=== PATIENT | female | born 1995 | race Caucasian/White ===

== ENCOUNTER 2020-07-23 10:58 | Emergency (ER) | payer OTHER ==
[~2020-07-23] VITALS: Ht 162.6 cm; Wt 52.1 kg
[2020-07-23] MEDS ORDERED: PREN1CHW PO (11:04)
[2020-07-23] MEDS ORDERED: ACETAMINOPHEN 325 MG TAB PO ONE (11:30)
[2020-07-23 12:01] LABS: BASO % 0.2 % (0.0-1.0); EOS % 0.3 % (0.0-3.0); HEMOGLOBIN 12.3 g/dl (12.0-15.5); LYMPH # 2.2 10^3/uL (1.5-5.0); LYMPH % 18.4 % (24.0-44.0); MEAN CORPUSCULAR HEMOGLOBIN 30.6 pg (27.0-33.0); MEAN CORPUSCULAR HGB CONC 33.2 g/dl (32.0-36.5); MONO # 0.9 10^3/uL (0.0-0.8); MONO % 7.9 % (2.0-8.0); NEUTROPHILS # 8.5 10^3/uL (1.5-8.5); NEUTROPHILS % 72.8 % (36.0-66.0); PLATELET COUNT, AUTOMATED 258 10^3/uL (150-450); RED BLOOD COUNT 4.02 10^6/uL (4.00-5.40); WHITE BLOOD COUNT 11.7 10^3/uL (4.0-10.0)
[2020-07-23 12:05] LABS: APPEARANCE, URINE CLEAR (CLEAR); BACTERIA, URINE AUTO 1+ (NEGATIVE); BILIRUBIN, URINE AUTO NEGATIVE (NEGATIVE); BLOOD, URINE BLOOD 1+ (NEGATIVE); COLOR, URINE STRAW (YELLOW); GLUCOSE, URINE (UA) AUTO NEGATIVE (NEGATIVE); KETONE, URINE AUTO NEGATIVE (NEGATIVE); LEUKOCYTE ESTERASE, URINE AUTO NEGATIVE (NEGATIVE); MUCUS, URINE SMALL (NEGATIVE); NITRITE, URINE AUTO NEGATIVE (NEGATIVE); PROTEIN, URINE AUTO NEGATIVE (NEGATIVE); RBC, URINE AUTO 1 /HPF (0-3); SPECIFIC GRAVITY URINE AUTO 1.006 (1.002-1.035); SQUAMOUS EPITHELIAL CELL UR AU 1 /HPF (0-6); UROBILINOGEN, URINE AUTO 0.2 mg/dL (0.0-2.0); WBC, URINE AUTO 1 /HPF (0-3)
--- NOTE | 2020-07-23 12:23 | REP ---
INDICATION: VAGINAL BLEEDING. COMPARISON: None. TECHNIQUE: Real-time sonographic evaluation of gravid uterus performed. FINDINGS: There is a single living intrauterine gestation with an estimated gestational age of 8 weeks 5 days based on a crown-rump length of 21 mm. EDC 02/27/2021. heart rate 161 beats per minute. There is a subchorionic hemorrhage which measures approximately 2.3 x 0.6 x 2.3 cm. IMPRESSION: Viable intrauterine gestation 8 weeks 5 days gestational age, heart rate 161 beats per minute. Subchorionic hemorrhage measuring 2.3 x 0.6 x 2.3 cm. <Electronically signed by Praful Sky > 07/23/20 [id number]
[2020-07-23 13:42] LABS: HCG, SERUM QUANTITATIVE 274168 MIU/ML
[2020-07-23 13:44] LABS: BLOOD UREA NITROGEN 5 MG/DL (7-18); CALCIUM LEVEL 8.4 MG/DL (8.5-10.1); CARBON DIOXIDE LEVEL 29 MEQ/L (21-32); CHLORIDE LEVEL 106 MEQ/L (98-107); GLOMERULAR FILTRATION RATE > 60.0 (>60); GLUCOSE, FASTING 82 MG/DL (70-100); POTASSIUM SERUM 3.6 MEQ/L (3.5-5.1); SODIUM LEVEL 138 MEQ/L (136-145)
[2020-07-23 14:10] LABS: CHLAMYDIA DNA AMPLIFICATION NEGATIVE (NEGATIVE); GC DNA AMPLIFICATION NEGATIVE (NEGATIVE)
[2020-07-23] MEDS ORDERED: CEPH500C PO (14:43)
[2020-07-23 14:45] VITALS: BP 126/59
== END 2020-07-23 14:55 | disposition home or self-care (01) ==
LOC: M ED 10:58
DX: O20.9 Hemorrhage in early pregnancy, unspecified (principal); O36.8910 Maternal care for other specified fetal problems, first trimester, not applicable or unspecified; O23.41 Unspecified infection of urinary tract in pregnancy, first trimester; R87.619 Unspecified abnormal cytological findings in specimens from cervix uteri; Z3A.08 8 weeks gestation of pregnancy

== ENCOUNTER 2021-02-11 21:43 | Inpatient (IN) | payer OTHER ==
[~2021-02-11] VITALS: Ht 156.2 cm; Wt 61.9 kg
[~2021-02-11 21:43] MED LIST: CEPH500C PO; PREN1CHW PO
[2021-02-11 22:01] VITALS: BP 113/63
--- OUTSIDE RECORDS SUMMARY | 2021-02-11 22:30 | CCD ---
Author Author [facility] Organization [facility] Address Unknown Phone Unavailable Support Name Relationship Address Phone SQUARED AWAY Next Of Kin [address] [place] [address] Unavailable ROSENDO BARRIGA Next Of Kin [address] [place] [address] Re-disclosure Warning The records that you are about to access may contain information from federally-assisted alcohol or drug abuse programs. If such information is present, then the following federally mandated warning applies: This information has been disclosed to you from records protected by federal confidentiality rules (42 CFR part 2). The federal rules prohibit you from making any further disclosure of this information unless further disclosure is expressly permitted by the written consent of the person to whom it pertains or as otherwise permitted by 42 CFR part 2. A general authorization for the release of medical or other information is NOT sufficient for this purpose. The Federal rules restrict any use of the information to criminally investigate or prosecute any alcohol or drug abuse patient.The records that you are about to access may contain highly sensitive health information, the redisclosure of which is protected by Article 27-F of the [facility] Public Health law. If you continue you may have access to information: Regarding HIV / AIDS; Provided by facilities licensed or operated by the [facility] Office of Mental Health; or Provided by the [facility] Office for People With Developmental Disabilities. If such information is present, then the following [facility] mandated warning applies: This information has been disclosed to you from confidential records which are protected by state law. State law prohibits you from making any further disclosure of this information without the specific written consent of the person to whom it pertains, or as otherwise permitted by law. Any unauthorized further disclosure in violation of state law may result in a fine or fpc sentence or both. A general authorization for the release of medical or other information is NOT sufficient authorization for further disc losure. Medications No Information Insurance Providers Payer name Policy type / Coverage type Policy ID Covered alliance party ID Covered alliance party's relationship to shelby Policy [place] Plan Information [facility] [id number] [facility] [id number] Problems, Conditions, and Diagnoses No Information Surgeries/Procedures No Information Results No Information Social History No Information
[2021-02-11] MEDS ORDERED: AZITHROMYCIN INJ 500 MG, VIAL MATE ADAPTER 1 EACH in NS 250 ML IV ONE (22:40)
[2021-02-11] MEDS ORDERED: METHYLERGONOVINE MALEATE 0.2 MG/ML VIAL (J2210) IM PRN (22:40)
[2021-02-11] MEDS ORDERED: CARBOPROST TROMETHAMINE 250 MCG/ML AMP IM PRN (22:40)
[2021-02-11] MEDS ORDERED: OXYTOCIN DRIP 30 UNITS in IV 1 EA IV PRN ×4 (22:40)
[2021-02-11] MEDS ORDERED: TRANEXAMIC ACID INJection 1,000 MG in NS 100 ML IV PRN (22:40)
[2021-02-11] MEDS ORDERED: LR 1,000 ML IV ONE (23:05)
[2021-02-11 23:14] VITALS: BP 113/76
[2021-02-11 23:21] LABS: HEMATOCRIT 31.5 % (36.0-47.0); HEMOGLOBIN 9.7 g/dl (12.0-15.5); MEAN CORPUSCULAR HEMOGLOBIN 24.1 pg (27.0-33.0); MEAN CORPUSCULAR HGB CONC 30.8 g/dl (32.0-36.5); MEAN CORPUSCULAR VOLUME 78.4 fl (80.0-96.0); PLATELET COUNT, AUTOMATED 332 10^3/uL (150-450); RED BLOOD COUNT 4.02 10^6/uL (4.00-5.40); WHITE BLOOD COUNT 14.7 10^3/uL (4.0-10.0)
[2021-02-11] MEDS ORDERED: ceFAZolin SOD 2 GM in IV 1 EA IV ONE (23:30)
[2021-02-11] MEDS ORDERED: ceFAZolin 2 GM/D5W 50 ML IV BAG (J0690 PER 500MG) As Ordered ONE (23:34)
[2021-02-11 23:46] VITALS: BP 116/69
[2021-02-12] VITALS (9 sets, daily range): BP systolic 97–128; BP diastolic 54–74
[2021-02-12] MEDS: BICITRA 30ML SOLN UDC PO SCH ×2 (00:14→20:19)
[2021-02-12] MEDS: LR 1,000 ML IV SCH ×2 (00:15→04:06)
--- NOTE | 2021-02-12 00:22 | HPEPDOC ---
Obstetrical History & Physical General Date of Admission Feb 11, 2021 at 22:19 History of Present Illness 25 yo at 38+5 weeks gestation by LMP of 17May2020 c/w 21+1 weeks US presented to L&D with regular, painful contractions. She denies vaginal bleeding or leakage of fluid. She endorses regular movement. She is scheduled for PLTCS with BTL on 20Feb2021 for breech presentation. 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 Past Medical History Medical History Anemia Surgical History: Denies/None Family History Significant Family History: No pertinent family hx Social History Marital Status: Family situation: Spouse/partner home Psychosocial History: No pertinent psych hx * Smoker: non-smoker Alcohol: Denies Drugs: denies Imunizations Tdap status: current Influenza Status: declined Allergies Coded Allergies: No Known Allergies (Unverified , 07/23/20) Medications Scheduled Cephalexin (Cephalexin) 500 Mg Capsule, 500 MG PO QID Comb No.42/Folic Acid (Prena1 Chew Tablet) 1.4 Mg Tab.ch.bph, 1 TAB PO DAILY Physical Examination Physical Examination GENERAL: Alert and oriented times three. ABDOMEN: Gravid and non-tender to touch. FETUS: Is vertex (VTX) by sterile vaginal examination (SVE) EXTREMITIES: No edema. Bedside TAUS: Fetus in breech presentation Vital Signs/I&O Vital Signs Date Time Temp Pulse Resp B/P (MAP) Pulse Ox O2 Delivery O2 Flow Rate FiO2 02/11/21 22:01 97.9 113 18 113/63 (80) Laboratory Data 24H LABS Laboratory Tests 2 02/11/21 22:27: Coronavirus (COVID-19)(PCR) NEGATIVE 02/11/21 22:45: Nucleated Red Blood Cells % (auto) 0.1H 02/11/21 23:17: Serology Scanned Report Hepatitis B Testing CBC/BMP Laboratory Tests 02/11/21 22:45 Pertinent Laboratoy Data Blood Type: O+ RBC Antibody Screen: Negative HIV: Negative Hepatitis B: Negative Hepatitis C: Unknown Rapid Plasma Reagin: Nonreactive Rubella: Immune Varicella: Immune Chlamydia/Gonorrhea: Negative Group B Streptococcus: Negative Quad Screen Test: Unknown (Maternit 21 - low risk) Cystic Fibrosis: Negative Glucose Tolerance Test: 154 (passed 3hr: 146/122/100/90) Anatomy Ultrasound Placenta Location: Anterior Normal Anatomy: Yes Placenta Previa: No Steroid Therapy Steroid Therapy: No Vaginal Examination Dilation: 4 cm Effacement: 70% Station: -3 Cervical Consistency: Soft Cervical Position: Middle Presentation: Cephalic presentation Position: Vertex (occiput) Assessment Heart Rate (FHR): 130 Variability: Moderate Accelerations: Positive Decelerations: None Tocometer Contractions: Yes Frequency: regular Strength: palpated as moderate Assessment/Plan Assessment 25 yo at 38+5 weeks gestation presented to L&D in active labor with fetus in breech presentation. Plan Admit to L&D for delivery by section for active labor and malpresentation. Fluids and labs per L&D protocol. Patient strongly desires BTL at time of section. She had previously been counseled extensively and I again counseled her extensively today. We spe cifically discussed the permanent nature of the procedure and risk of regret. Lianet verbalized understanding and desired to proceed with Tubal ligation. We discussed all risks of sections to include, but not limited to, bleeding requiring blood transfusion, risk of infection, risk of injury to bowel, bladder, or other structures which could require additional surgery, risk of needing a hysterectomy as a life saving measure, risk of injury to baby, and even risk of and/or maternal . She verbalized understanding of these risks and elected to proceed. Anesthesia notified. client service executive to the OR. Ancef and azithromycin for infection prophylaxis. All patient and questions answered. ISIS Zhong DO Feb 12, 2021 00:22
[2021-02-12] MEDS ORDERED: NALOXONE INJ 0.4MG/1ML VIAL (J2310 PER 1MG) IV PRN ×2 (00:52)
[2021-02-12] MEDS ORDERED: NALBUPHINE HCL 10 MG/ML AMP (J2300) IV PRN (00:52)
[2021-02-12] MEDS ORDERED: ONDANSETRON 4MG/2ML VIAL IV PRN ×3 (00:52→03:10)
[2021-02-12] MEDS ORDERED: diphenhydrAMINE 50MG/ML VIAL (J1200) IV PRN (00:52)
[2021-02-12] MEDS ORDERED: METOCLOPRAMIDE INJ 10MG/2ML VIAL (J2765 PER 1) IV PRN ×2 (00:52→03:10)
[2021-02-12] MEDS ORDERED: MORPHINE PRES-FREE INJ 10 MG/10 ML VIAL (J2274) As Ordered ONE (01:00)
[2021-02-12] MEDS ORDERED: ONDANSETRON 4MG/2ML VIAL As Ordered ONE ×2 (01:14→01:18)
[2021-02-12] MEDS ORDERED: OXYTOCIN 30 UNITS IN 0.9% NaCl 500ML IV BAG (J2590) As Ordered ONE ×2 (01:18→02:23)
[2021-02-12] MEDS ORDERED: ePHEDrine SULFATE 25 MG/5 ML(5MG/ML) SYRINGE As Ordered ONE (01:18)
[2021-02-12] MEDS ORDERED: PHENYLephrine 500MCG 5ML (100MCG/ML) SYRINGE As Ordered ONE (01:18)
[2021-02-12] MEDS ORDERED: KETOROLAC 60MG 2ML VIAL As Ordered ONE (01:18)
[2021-02-12] MEDS ORDERED: fentaNYL 100 MCG/2 ML INJECTION (J3010) As Ordered ONE (01:32)
[2021-02-12] MEDS ORDERED: MIDAZOLAM INJ 2MG/2ML VIAL (J2250 PER 1MG) As Ordered ONE (01:40)
[2021-02-12] MEDS ORDERED: propofoL 200 MG/20 ML VIAL As Ordered ONE (01:40)
[2021-02-12] MEDS ORDERED: OXYTOCIN DRIP 30 UNITS in IV 1 EA IV SCH (02:15)
[2021-02-12] MEDS ORDERED: RHOGAM 300 MCG (1500 IU) INJ (J2790) IM SCH (02:15)
[2021-02-12] MEDS ORDERED: PROMETHAZINE 25 MG TAB PO PRN (02:15)
[2021-02-12] MEDS ORDERED: oxyCODONE 5MG TAB PO PRN (02:15)
[2021-02-12] MEDS ORDERED: MEASLES,MUMPS,RUBELLA VACCINE INJ (MMR-II) (90707) SC SCH (02:15)
--- NOTE | 2021-02-12 02:21 | ROOPDOC ---
[facility] Report Of Operation Report of Operation DATE OF PROCEDURE: 02/12/21 PREPROCEDURE DIAGNOSES: 1. malpresentation, active labor 2. Satisfied parity 3. Anemia POSTPROCEDURE DIAGNOSES: 1. Double footling breech presentation, active labor 2. Satisfied parity 3. Anemia PROCEDURE: Primary low transverse section and bilateral tubal ligation SURGEON: Frank Webb DO, FACOG CHECK WEIGHER: Rossy Garcia CNM, whose assistance with exposure, retraction, visualization, and delivery of the was essential to completion of the case ANESTHESIA: Spinal. FLUIDS: 1400 mL lactated Ringer's (LR). URINE OUTPUT: 150 mL clear urine via garcia catheter ESTIMATED BLOOD LOSS: 700 mL. COMPLICATIONS: None. ANTIBIOTICS: 2 grams of Ancef and 500 mg of azithromycin. OPERATIVE FINDINGS: Infant in double footling breech presentation. Clear amniotic fluid. Female fetus delivered without difficulty with Apgars 8/9 and weight of 3010 grams. Normal appearing placenta, fallopian tubes, and ovaries. DETAILED PROCEDURE DESCRIPTION: The risks, benefits, indications, and alternatives of the procedure were reviewed with the patient and informed consent was obtained. The patient was taken to the operating room where spinal anesthesia was obtained without difficulty. The patient was then prepped and draped in the usual sterile fashion in the dorsal supine position with a leftward tilt. A surgical time-out was performed in which the patient's identify and planned procedure were verified with the operative team. A Pfannenstiel skin incision was then made with a scalpel and carried through to the underlying layer of fascia. The fascia was incised in the midline and the incision was extended laterally with Arenas scissors. The superior aspect of the fascial incision was grasped with Andrei clamps, elevated, and the underlying rectus muscles were dissected off with a scalpel. Attention was then turned to the inferior aspect of this incision, which in a similar fashion, was grasped, tented up with Andrei clamps, and the rectus muscles were dissected off with Arenas scissors. The rectus muscles were then in the midline. The peritoneum was identified and entered digitally. The peritoneal incision was then extended horizontally and superiorly and the bladder was clearly identified. A Mobius self-containing retractor was then inserted into the abdomen as a means for exposure. The vesicouterine peritoneum was identified and entered sharply with a scalpel. This incision was then extended laterally and a bladder flap was created digitally. Next, a low transverse incision was made in the lower uterine segment. The incision was extended manually. The infant was noted to be in double footling breech presentation. The amniotic sac was artificially ruptured and was productive of clear fluid. The 's feet were grasped and elevated through the hysterotomy. The remainder of the was then delivered without difficulty through the hysterotomy using the usual breech maneuvers. The 's nose and mouth were suctioned with a bulb syringe and the cord was doubly clamped and cut. The infant was then handed off to the awaiting team. The placenta was then removed manually with gentle traction on the cord. The uterus was then exteriorized and cleared of all clots and debris. The uterine incision was then repaired with #0 Monocryl suture in a running fashion. The posterior cul-de-sac was then irrigated to good effect. Attention was then turned to the patient's fallopian tubes. The left fallopian tube was grasped at the isthmic portion with marisela clamps. A window in the mesosalpinx underneath this tubal segment was then created with the bovie. Two sutures of plain gut were then used to tie and suture ligate both ends of the tubal segment. The segment was then amputated with metzenbaum scissors and sent to pathology for review. Inspection of the operative site revealed excellent hemostasis. An identical procedure was then performed on the patient's right fallopian tube. Inspection of the operative site revealed excellent hemostasis. Thus tubal ligation was completed via the parkland method. The hysterotomy was again inspected and a single figure of eight suture of 0- monocryl was used to achieve hemostasis in the midline. At this point a rent was noted in the broad ligament on the left side with bowel protruding through. This rent was closed with 3-0 vicryl suture, taking care to avoid the bowel. Once the rent was repaired the bowel no longer protruded through. The paracolic gutters were then inspected and cleared of all clots and debris. The hysterotom y was again inspected and hemostasis was noted. There was oozing at the vesicouterine peritoneum and this was controlled with the bovie. Chelsey was then applied to this area as well. The uterus was then returned to the abdomen and the Mobius self-containing retractor was also removed from the abdomen. Final inspection revealed excellent hemostasis. The peritoneum was then closed with 3-0 vicryl suture in a running fashion. The fascia was closed with #0 Vicryl suture in a running fashion. The subcutaneous fat was closed with #3-0 Vicryl suture in a running fashion. The skin was closed with #4-0 Monocryl suture in a subcuticular fashion. The incision was then dressed with Steri-Strips and an optifoam dressing was applied. At the completion of the case a bimanual exam was performed which revealed good uterine tone and minimal vaginal bleeding. The patient tolerated the procedure well. Sponge, lap, instrument, and needle counts were correct times three. The patient was taken to the recovery room in stable condition. FRANK WEBB DO Feb 12, 2021 02:21
[2021-02-12] MEDS ORDERED: LR 1,000 ML IV SCH (03:10)
[2021-02-12] MEDS ORDERED: fentaNYL 100 MCG/2 ML INJECTION (J3010) IV PRN (03:10)
[2021-02-12] MEDS ORDERED: PERCOCET 5MG/325MG TAB PO PRN (03:10)
[2021-02-12] MEDS ORDERED: ceFAZolin SOD 2 GM in IV 1 EA IV ONE (06:00)
[2021-02-12] MEDS: PRENATAL VITAMINS CHEWABLE TABLET PO SCH (07:49)
[2021-02-12] MEDS: KETOROLAC 30 MG/ML 1ML VIAL IV SCH ×3 (07:50→20:00)
[2021-02-12] MEDS: ACETAMINOPHEN TAB 650MG DOSE (2X325MG) PO PRN ×2 (16:35→20:40)
[2021-02-13 02:00] VITALS: BP 105/56
[2021-02-13] MEDS: ACETAMINOPHEN TAB 650MG DOSE (2X325MG) PO PRN ×3 (02:18→17:31)
[2021-02-13] MEDS: IBUPROFEN 800 MG TAB PO SCH ×3 (04:06→19:58)
[2021-02-13 06:00] VITALS: BP 125/76
[2021-02-13] MEDS: oxyCODONE 5MG TAB PO PRN ×3 (06:07→22:23)
--- NOTE | 2021-02-13 08:14 | IPNPDOC ---
Progress Note Date of Service: Feb 13, 2021 Progress Note Lianet is a 25 yo G2 now P2 who underwent an uncomplicated PLTCS with BTL on 12Feb2021 (~0200) for malpresentation and active labor. Yesterday she did well and had no issues. She reports feeling well today. She has been ambulatory and is tolerating a regular diet. Pain is well controlled. Lochia is minimal. Vitals - VSS, afebrile, normotensive, nontachycardic General - AAOX3, sitting up in bed, NAD Abdomen - Fundus firm at U-2. No fundal tenderness. optifoam dressing in place on abdomen. Minimal strikethrough. No tenderness to palpation. UO - excellent Labs: Pre op H/H 9.7/31.5 ---> Pending this AM Lianet is doing well and is making an appropriate postoperative / recovery. Plan for discharge tomorrow if she meets all criteria. David VS, I&O, 24H, Fishbone Vital Signs/I&O Vital Signs Date Time Temp Pulse Resp B/P (MAP) Pulse Ox O2 Delivery O2 Flow Rate FiO2 02/13/21 06:44 16 02/13/21 06:00 98.0 85 125/76 (92) 100 Room Air I&O- Last 24 Hours up to 6 AM 02/13/21 06:00 Intake Total 1125 ml Output Total 2050 ml Balance -925 ml ISIS WEBB DO Feb 13, 2021 08:14
[2021-02-13] MEDS: PRENATAL VITAMINS CHEWABLE TABLET PO SCH (08:35)
[2021-02-13 09:51] LABS: HEMATOCRIT 26.4 % (36.0-47.0); MEAN CORPUSCULAR HEMOGLOBIN 24.3 pg (27.0-33.0); MEAN CORPUSCULAR HGB CONC 30.3 g/dl (32.0-36.5); MEAN CORPUSCULAR VOLUME 80.2 fl (80.0-96.0); PLATELET COUNT, AUTOMATED 275 10^3/uL (150-450); RED BLOOD COUNT 3.29 10^6/uL (4.00-5.40); WHITE BLOOD COUNT 15.2 10^3/uL (4.0-10.0)
[2021-02-13] MEDS: SIMETHICONE 80MG CHEW TAB PO PRN ×2 (10:24→17:31)
[2021-02-13 10:32] VITALS: BP 120/60
[2021-02-13 17:34] VITALS: BP 117/70
[2021-02-13] MEDS: BICITRA 30ML SOLN UDC PO SCH (21:27)
[2021-02-13 22:00] VITALS: BP 124/70
[2021-02-14] MEDS: IBUPROFEN 800 MG TAB PO SCH ×2 (04:06→11:16)
--- NOTE | 2021-02-14 05:20 | OBDS ---
[facility] Obstetrical Discharge Sum. Obstetrical Discharge Summary Automatic Lathe Operator/Provider: CAROLINE ALCANTAR DO Date: Feb 14, 2021 Time: 05:14 : 2 Term: 2 Pre-term: 0 Abortions: 0 Livin VDRL: Non-Reactive Rh: Positive Rubella: Immune Labor n/a Delivery primary low transverse delivery indicated for breech presentation Infant Sex: Female Weight: pounds (6), ounces (10) Anesthesia: Regional Anesthesia A/P, Post Course List any complications Admission diagnosis: 38 weeks gestation, breech presentation, labor, anemia Discharge diagnosis: status post primary low transverse delivery, anemia Condition at Discharge: Good Discharge Instructions: Home Activity: no lifting more than 10 pounds, vaginal rest for 6 weeks Diet: resume pre-hospital diet Medications: at [place] Follow-up: 2-week incision check [facility], 6-week visit Other: Day of Discharge Exam a&o x3 nonlabored breathing abdomen soft, appropriately tender postoperatively, no guarding or rebound, incision covered with Optifoam with minimal strikethrough. +passage of flatus per patient uterus firm -2 negative calf tenderness bilaterally CAROLINE ALCANTAR DO Feb 14, 2021 05:16
[2021-02-14] MEDS ORDERED: OXYC-517 PO (05:24)
[2021-02-14] MEDS ORDERED: ACET1TAB55 PO (05:24)
[2021-02-14] MEDS ORDERED: IBUP80TA PO (05:24)
[2021-02-14] MEDS: oxyCODONE 5MG TAB PO PRN (06:33)
[2021-02-14] MEDS: PRENATAL VITAMINS CHEWABLE TABLET PO SCH (08:59)
== END 2021-02-14 12:50 | disposition home or self-care (01) | DRG 785 ==
LOC: M LDO 21:43 → M LDI 22:19 → M OBS 02-12 03:40
PROVIDERS: ADMIT Obstetrics & Gynecology; ATTEND Obstetrics & Gynecology
PROC: 10D00Z1 Extraction of Products of Conception, Low, Open Approach (ICD-10-PCS; principal; 2021-02-11)
PROC: 0UB70ZZ Excision of Bilateral Fallopian Tubes, Open Approach (ICD-10-PCS; 2021-02-11)
DX: O32.8XX0 Maternal care for other malpresentation of fetus, not applicable or unspecified (principal); Z3A.38 38 weeks gestation of pregnancy; O75.82 Onset (spontaneous) of labor after 37 completed weeks of gestation but before 39 completed weeks gestation, with delivery by (planned) cesarean section; O99.02 Anemia complicating childbirth; D64.9 Anemia, unspecified; Z20.822 Contact with and (suspected) exposure to COVID-19; Z37.0 Single live birth; Z30.2 Encounter for sterilization

== ENCOUNTER 2021-08-08 18:01 | Emergency (ER) | payer OTHER ==
[~2021-08-08] VITALS: Ht 154.9 cm; Wt 56.4 kg
[~2021-08-08 18:01] MED LIST changes: +ACET1TAB55 PO; +IBUP80TA PO; +OXYC-517 PO
[2021-08-08 18:09] VITALS: BP 139/88
== END 2021-08-08 20:57 | disposition left against medical advice (07) ==
LOC: M ED 18:01
DX: Z53.21 Procedure and treatment not carried out due to patient leaving prior to being seen by health care provider (principal)

== ENCOUNTER 2021-11-14 07:47 | Observation (INO) | payer OTHER ==
[~2021-11-14] VITALS: Ht 154.9 cm; Wt 57.2 kg
[2021-11-14] VITALS (7 sets, daily range): BP systolic 118–133; BP diastolic 62–81
[~2021-11-14 07:47] MED LIST changes: +LITH300C; +ceFAZolin SOD 2 GM in IV 1 EA IV ONE
[2021-11-14] MEDS ORDERED: LR 1,000 ML IV SCH ×2 (08:00→12:45)
[2021-11-14] MEDS ORDERED: BUPIVACAINE HCL 0.25% 30ML VIAL As Ordered ONE (08:49)
[2021-11-14] MEDS ORDERED: LIDOCAINE 1% MDV 20ML VIAL As Ordered ONE (08:49)
[2021-11-14] MEDS ORDERED: EPINEPHrine INJ 1 MG/ML 1ML AMP As Ordered ONE (08:49)
[2021-11-14] MEDS ORDERED: BUPIVACAINE LIPOSOME/PF 1.3% 20ML VIAL (13.3MG/ML)(EXPAREL) As Ordered ONE (08:49)
[2021-11-14] MEDS ORDERED: GENTAMICIN SULF 80MG/2ML VIAL As Ordered ONE (08:49)
[2021-11-14] MEDS ORDERED: MIDAZOLAM INJ 2MG/2ML VIAL (J2250 PER 1MG) As Ordered ONE (09:51)
[2021-11-14] MEDS ORDERED: dexameTHASONE 4 MG/ML 1ML VIAL (J1100 PER 1MG) As Ordered ONE (09:51)
[2021-11-14] MEDS ORDERED: HYDROmorphone HCL 2MG/ML 1ML VIAL As Ordered ONE (09:51)
[2021-11-14] MEDS ORDERED: ROCURONIUM BROMIDE 50 MG/5 ML VIAL As Ordered ONE ×2 (09:51→09:58)
[2021-11-14] MEDS ORDERED: SUGAMMADEX SODIUM 500 MG/5 ML VIAL (BRIDION) As Ordered ONE (09:51)
[2021-11-14] MEDS ORDERED: ONDANSETRON 4MG 2ML VIAL As Ordered ONE (09:51)
[2021-11-14] MEDS ORDERED: LIDOCAINE 2% 100MG/5ML SDV (FOR ANES.) As Ordered ONE (09:51)
[2021-11-14] MEDS ORDERED: fentaNYL 100 MCG/2 ML INJECTION As Ordered ONE (09:51)
[2021-11-14] MEDS ORDERED: ACETAMINOPHEN 1000MG 100ML IV BTL (OFIRMEV) (J0131 PER 10MG) As Ordered ONE (09:51)
[2021-11-14] MEDS ORDERED: propofoL 200 MG/20 ML VIAL As Ordered ONE (09:51)
[2021-11-14] MEDS ORDERED: PHENYLephrine 500MCG 5ML (100MCG/ML) SYRINGE As Ordered ONE (09:57)
[2021-11-14] MEDS ORDERED: ONDANSETRON 4MG 2ML VIAL IV PRN ×2 (12:45)
[2021-11-14] MEDS ORDERED: HYDROMORPHONE HCL 0.5 MG/ 0.5 ML SYRINGE (J1170 PER 1) IV PRN (12:45)
[2021-11-14] MEDS ORDERED: ACETAMINOPHEN TAB 650MG DOSE (2X325MG) PO PRN (12:45)
[2021-11-14] MEDS ORDERED: fentaNYL 100 MCG/2 ML INJECTION IV PRN (12:45)
[2021-11-14] MEDS ORDERED: PERCOCET 5MG/325MG TAB PO PRN (12:45)
[2021-11-14] MEDS: LR 1,000 ML IV SCH (14:37)
[2021-11-14] MEDS: ceFAZolin SOD 1 GM in D5W MINI-BAG PLUS 50 ML IV SCH (18:14)
[2021-11-14] MEDS: traMADol 50 MG TAB PO PRN (18:16)
[2021-11-14] MEDS: PERCOCET 5MG/325MG TAB PO PRN (20:01)
[2021-11-15] VITALS: BP 111/64
[2021-11-15] MEDS: PERCOCET 5MG/325MG TAB PO PRN ×3 (00:08→10:10)
[2021-11-15] MEDS: ceFAZolin SOD 1 GM in D5W MINI-BAG PLUS 50 ML IV SCH ×2 (02:07→10:03)
[2021-11-15] MEDS: LR 1,000 ML IV SCH (02:55)
[2021-11-15] MEDS: traMADol 50 MG TAB PO PRN ×2 (07:54→13:06)
[2021-11-15 08:00] VITALS: BP 112/69
[2021-11-15] MEDS ORDERED: TRAM50TA2 PO (10:48)
[2021-11-15] MEDS ORDERED: traMADol 50 MG TAB PO ONE (13:00)
[2021-11-15] MEDS ORDERED: OXYC1TAB23 PO (13:05)
[2021-11-15 13:50] VITALS: BP 118/63
== END 2021-11-15 14:20 | disposition home or self-care (01) ==
LOC: M SDC 07:47 → M PED 07:48
PROVIDERS: ADMIT Plastic Surgery Surgery of the Hand; ATTEND Plastic Surgery Surgery of the Hand
DX: N62 Hypertrophy of breast (principal); N64.81 Ptosis of breast; Z79.899 Other long term (current) drug therapy
CPT/HCPCS: 19318; 81025; 88305; 96365; 96366; 96376; C9290; J0131; J0690; J1100; J1170; J1580; J2250; J2370; J2405; J3010

== ENCOUNTER 2021-12-23 17:06 | Emergency (ER) | payer OTHER ==
[~2021-12-23 17:06] MED LIST changes: +OXYC1TAB23 PO; +TRAM50TA2 PO; -ceFAZolin SOD 2 GM in IV 1 EA IV ONE
[2021-12-23] MEDS ORDERED: CIPR500T39 (17:13)
[2021-12-23] MEDS ORDERED: KETOROLAC 30 MG/ML 1ML VIAL IV ONE (18:40)
[2021-12-23] MEDS ORDERED: NS 1,000 ML IV ONE (18:40)
[2021-12-23 18:51] LABS: BASO % 0.5 % (0.0-1.0); EOS # 0.1 10^3/uL (0.0-0.5); EOS % 0.9 % (0.0-3.0); HEMATOCRIT 42.3 % (36.0-47.0); HEMOGLOBIN 13.7 g/dl (12.0-15.5); LYMPH # 2.8 10^3/uL (1.5-5.0); MEAN CORPUSCULAR HEMOGLOBIN 29.3 pg (27.0-33.0); MEAN CORPUSCULAR HGB CONC 32.4 g/dl (32.0-36.5); MEAN CORPUSCULAR VOLUME 90.6 fl (80.0-96.0); MONO # 0.7 10^3/uL (0.0-0.8); MONO % 8.3 % (2.0-8.0); NEUTROPHILS # 5.1 10^3/uL (1.5-8.5); NEUTROPHILS % 57.8 % (36.0-66.0); PLATELET COUNT, AUTOMATED 325 10^3/uL (150-450); RED BLOOD COUNT 4.67 10^6/uL (4.00-5.40); WHITE BLOOD COUNT 8.9 10^3/uL (4.0-10.0)
[2021-12-23 19:39] LABS: ALBUMIN 4.2 GM/DL (3.2-5.2); ALT/SGPT 18 U/L (12-78); BILIRUBIN,TOTAL 1.2 MG/DL (0.2-1.0); BLOOD UREA NITROGEN 13 MG/DL (7-18); CALCIUM LEVEL 9.1 MG/DL (8.5-10.1); CARBON DIOXIDE LEVEL 26 MEQ/L (21-32); CHLORIDE LEVEL 106 MEQ/L (98-107); CREATININE FOR GFR 0.78 MG/DL (0.55-1.30); GLOMERULAR FILTRATION RATE > 60.0 (>60); GLUCOSE, FASTING 71 MG/DL (70-100); POTASSIUM SERUM 3.8 MEQ/L (3.5-5.1); SODIUM LEVEL 138 MEQ/L (136-145); TOTAL PROTEIN 8.1 GM/DL (6.4-8.2)
[2021-12-23] MEDS ORDERED: KETO10TAB PO (20:34)
[2021-12-23 20:53] VITALS: BP 119/73
== END 2021-12-23 21:04 | disposition home or self-care (01) ==
LOC: M ED 17:06
DX: R10.9 Unspecified abdominal pain (principal); R11.0 Nausea; Z79.899 Other long term (current) drug therapy; Z79.2 Long term (current) use of antibiotics
CPT/HCPCS: 74018; 76775; 80053; 81000; 81015; 84702; 85025; 87086; 96361; 96374; 99283; J1885